=== PATIENT | female | born 1965 | race African-American/Black ===

== ENCOUNTER 2020-05-20 15:56 | Outpatient (CLI) | payer BC, SELFPAY ==
--- NOTE | ~2020-05-20 | MM_ITS ---
EXAMINATION: MM screening benjamin BI w nan HISTORY: Screening mammogram TECHNIQUE: Craniocaudal and mediolateral oblique 3-D tomosynthesis images were obtained and synthetic 2-D images were generated. CAD analysis was submitted and interpreted. COMPARISON: 01/13/2019, 12/10/2017, 06/14/2016 bilateral diagnostic digital mammogram bilateral digital screening mammogram examinations BREAST PARENCHYMAL COMPOSITION: There are scattered areas of fibroglandular density. FINDINGS: There is no evidence of suspicious mass, calcification, or architectural distortion to sugg est malignancy in either breast. There has been no suspicious interval change. IMPRESSION: 1. No mammographic evidence of malignancy. 2. Recommend routine screening mammography in one year. BI-RADS Category 1: Negative.. Reviewed, dictated and finalized at location A.
== END 2020-05-20 15:57 | disposition home or self-care (01) ==
LOC: ANHIMG 16:00
PROVIDERS: PCP Family Medicine; Visit Provider Nurse Practitioner Family
DX: Z12.31 Encounter for screening mammogram for malignant neoplasm of breast (principal)
CPT/HCPCS: 77063; 77067

== ENCOUNTER 2020-10-28 13:01 | Outpatient (CLI) | payer OTHER, BC, SELFPAY ==
--- NOTE | ~2020-10-28 | MMUS_ITS ---
EXAMINATION: MM diagnostic benjamin BI w nan, US breast LT limited HISTORY: Tenderness in the upper outer quadrant of the left breast TECHNIQUE: Craniocaudal, mediolateral, and mediolateral oblique 3-D tomosynthesis images of the angela ts were performed and synthetic 2-D images were generated. CAD analysis was submitted and interpreted . High resolution limited right breast ultrasound was performed. COMPARISON: 05/20/2020, 01/13/2019, 12/10/2017 BREAST PARENCHYMAL COMPOSITION: There are scattered areas of fibroglandular density. FINDINGS: MAMMOGRAPHIC FINDINGS: There is no evidence of suspicious mass, calcification, or architectural distortion in either breast to suggest malignancy. There has been no suspicious interval change. No mammographic correlate is roro ntified for the patient's reported left breast pain. ULTRASOUND: There is no evidence of focal abnormal solid or cystic mass in the vicinity of the patient's reported left breast pain. IMPRESSION: 1. No specific mammographic or sonographic correlate is identified for the patient's reported left br east pain Further evaluation at this time should be based on clinical assessment. Continued follow-up physical examination is recommended. 2. Recommend routine screening mammography in one year. BI-RADS Category 1: Negative Reviewed, dictated and finalized at location A. IMPRESSION: 1. No specific mammographic or sonographic correlate is identified for the thony ent's reported left breast pain Further evaluation at this time should be based on clinical assessment. Continued follow-up physical examination is recommende d. 2. Recommend routine screening mammography in one year. BI-RADS Category 1: Negative
== END 2020-10-28 13:02 | disposition home or self-care (01) ==
LOC: ANHIMG 13:03
PROVIDERS: PCP Family Medicine; Visit Provider Advanced Practice Midwife
DX: N63.20 Unspecified lump in the left breast, unspecified quadrant (principal)
CPT/HCPCS: 76642; 77062; 77066; G0279

== ENCOUNTER 2022-08-22 12:13 | Outpatient (CLI) | payer BC, SELFPAY ==
--- NOTE | ~2022-08-22 | US_ITS ---
EXAMINATION:US venous doppler LE RT INDICATION:Acute DVT. Patient on blood thinners. TECHNIQUE: Multiple grayscale, color flow and Doppler images of the right lower extremity deep venous systems were obtained and reviewed. COMPARISON:No prior studies for comparison. FINDINGS: The common femoral, superficial femoral and popliteal veins demonstrate normal respiratory variation, augmentation and compressibility. Color flow is also seen within the posterior tibial, pe roneal, greater saphenous and profunda veins. IMPRESSION: 1: No lower extremity deep venous thrombosis. Reviewed, dictated and finalized at location []
== END 2022-08-22 12:14 | disposition home or self-care (01) ==
PROVIDERS: PCP Family Medicine; Visit Provider Internal Medicine Hematology & Oncology
DX: I82.4Z1 Acute embolism and thrombosis of unspecified deep veins of right distal lower extremity (principal)
CPT/HCPCS: 93971